=== PATIENT | female | born 1955 | race Two or more races ===

== ENCOUNTER 2021-08-30 11:16 | Inpatient (IN) | payer OTHER ==
[~2021-08-30 11:16] MED LIST: CRESTOR40 MG PO; D3 + K2 DOTS 11 EACH PO; LEVO-T25 MCG PO; VASOTEC10 MG PO
[2021-08-31] MEDS ORDERED: DOXEPIN HCL50 MG (08:02)
[2021-08-31] MEDS ORDERED: ALENDRONATE SOD70 MG (08:03)
[2021-08-31] MEDS ORDERED: VITAMIN D350 MCG (08:03)
[2021-08-31] MEDS ORDERED: CLONAZEPAM1 MG (08:03)
[2021-08-31] MEDS ORDERED: FAMOTIDINE40 MG (08:03)
[2021-08-31] MEDS ORDERED: RESTORIL30 MG (08:03)
[2021-08-31] MEDS ORDERED: QUETIAPINE FUMA50 MG (08:03)
[2021-08-31] MEDS ORDERED: ESCITALOPRAM OX10 MG (08:03)
[2021-08-31] MEDS ORDERED: BUPROPION XL150 MG (08:04)
== END 2021-09-01 10:12 | disposition home or self-care (01) | DRG 745 ==
LOC: CIR.AMB 11:16 → OB/GYN 22:32
PROVIDERS: ADMIT Obstetrics & Gynecology; ATTEND Obstetrics & Gynecology
PROC: 0UDB8ZZ Extraction of Endometrium, Via Natural or Artificial Opening Endoscopic (ICD-10-PCS; principal; 2021-08-30 11:00)
DX: N84.0 Polyp of corpus uteri (principal); Z20.822 Contact with and (suspected) exposure to COVID-19